=== PATIENT | female | born 1975 | race Caucasian/White ===

== ENCOUNTER → 2017-07-18 | Day surgery (SDC) | payer OTHER ==
[~2017-07-18] MED LIST: PROPOFOL 40 ML IV
[2017-07-18] MEDS: IV RINGERS,LACTATED 1000ML 1,000 ML IV (07:23)
== END | disposition home or self-care (01) ==
LOC: ENDOS 06:33
DX: Z09 Encounter for follow-up examination after completed treatment for conditions other than malignant neoplasm (principal); Z86.010 Personal history of colon polyps; K64.0 First degree hemorrhoids; K29.50 Unspecified chronic gastritis without bleeding; I10 Essential (primary) hypertension; E78.5 Hyperlipidemia, unspecified; Z85.3 Personal history of malignant neoplasm of breast; Z86.718 Personal history of other venous thrombosis and embolism; G47.33 Obstructive sleep apnea (adult) (pediatric); E66.9 Obesity, unspecified; F17.210 Nicotine dependence, cigarettes, uncomplicated; Z85.828 Personal history of other malignant neoplasm of skin; Z72.89 Other problems related to lifestyle; Z85.41 Personal history of malignant neoplasm of cervix uteri; Z90.710 Acquired absence of both cervix and uterus; Z90.49 Acquired absence of other specified parts of digestive tract; Z98.84 Bariatric surgery status; Z79.899 Other long term (current) drug therapy; Z88.8 Allergy status to other drugs, medicaments and biological substances; Z91.040 Latex allergy status; Z90.11 Acquired absence of right breast and nipple; Z91.048 Other nonmedicinal substance allergy status
CPT/HCPCS: 43235; J2704

== ENCOUNTER → 2020-11-21 | Outpatient (CLI) | payer OTHER ==
[2017-07-18 08:35] VITALS: BP 113/60
[~2020-11-21] MED LIST changes: +ALPR0.5T6 PO; +CEPH-264 PO; +DOCU-109 PO; +IBUP-1060 PO; +LACT1CAP25 PO; +MELA10TA PO; +OMEP40CA45 PO; +OXYC1TAB15 PO; +PRED50TA PO; -PROPOFOL 40 ML IV; +TORS20TA2 PO; +TRIA10.8 NS; +TRIA1TAB3 PO; +VENL75CA PO
--- NOTE | 2020-11-21 15:30 | KCIC ---
Exam Date: 11/21/2020 8:15 AM MRI LEFT LOWER EXTREMITY JOINT WITHOUT Indication: Reason: LEFT KNEE PAIN / Spl. Instructions: / History: Generalized over all pain, chroni c. Some physical therapy. TECHNIQUE: Routine multiplanar MR imaging of the knee was performed without contrast. COMPARISON: Radiographs from November 07, 2020 FINDINGS: There is complex tearing involving the posterior horn of the medial meniscus, including a large radia l component. The lateral meniscus is intact and within normal limits for age. The anterior cruciate ligament, posterior cruciate ligament, medial collateral ligament, and lateral collateral ligament complex are intact. Patellofemoral extensor mechanism and popliteus tendon are w ithin normal limits. There is focal full-thickness chondral fissuring along the trochlear sulcus with mild subchondral deg enerative marrow signal. Cartilage in the patellofemoral compartment is otherwise intact. There is mo derate diffuse chondral thinning in the medial compartment with multifocal full-thickness chondral lo ss and mild subchondral degenerative marrow signal. Cartilage in lateral compartment is intact. Small tricompartment osteophytes are noted. Bone marrow otherwise demonstrates normal signal on all s equences without evidence of acute fracture. There is a moderate joint effusion. There is no popliteal cyst. There is a 6 mm calcified intra-nikki cular body posteriorly near the posterior horn root of the medial meniscus. IMPRESSION: Complex tearing of the posterior horn of the medial meniscus. Full-thickness chondral loss in the medial compartment, more so than the patellofemoral compartment. Moderate joint effusion. 6 mm calcified intra-articular body posteriorly. Electronically signed by: Tom Vigil MD (11/21/2020 3:28 PM) [id number]
== END ==
LOC: KCIC MRI 08:09
PROVIDERS: ATTEND Physician Assistant Medical
DX: S83.232A Complex tear of medial meniscus, current injury, left knee, initial encounter (principal); M25.762 Osteophyte, left knee; M25.462 Effusion, left knee; X58.XXXA Exposure to other specified factors, initial encounter; Y93.89 Activity, other specified; Y92.89 Other specified places as the place of occurrence of the external cause; Y99.8 Other external cause status
CPT/HCPCS: 73721

== ENCOUNTER 2021-03-13 11:22 | Day surgery (SDC) | payer OTHER ==
[~2021-03-13] VITALS: Ht 167.6 cm; Wt 100.1 kg
[~2021-03-13 11:22] MED LIST changes: +IV RINGERS,LACTATED 1000ML 1,000 ML IV SCH; -LACT1CAP25 PO; +LACT1CAP39 PO; +MORPHINE SULFATE 2 MG/ML INJ. IVP PRN; -OMEP40CA45 PO; +OMEP40CA7 PO; +PROCHLORPERAZINE 10 MG/2 ML VIAL. IVP PRN; +fentaNYL PF VIAL 100 MCG/2 ML VIAL IVP PRN
[2021-03-13 11:52] VITALS: BP 110/67
[2021-03-13] MEDS ORDERED: SCOPOLAMINE 1.5MG PATCH. TD SCH (12:00)
[2021-03-13] MEDS ORDERED: ONDANSETRON PF 4 MG/2 ML VIAL. ONE (12:14)
[2021-03-13] MEDS ORDERED: PROPOFOL 10 MG/ML (20ML) VIAL. IV ONE (12:14)
[2021-03-13] MEDS ORDERED: LIDOCAINE 1% PF 5 ML VIAL. ONE (12:14)
[2021-03-13] MEDS ORDERED: DEXAMETHASONE SOD PHOS 4 MG/ML VIAL ONE ×2 (12:14→13:53)
[2021-03-13] MEDS ORDERED: fentaNYL PF VIAL 100 MCG/2 ML VIAL ONE ×2 (12:14→14:56)
[2021-03-13] MEDS ORDERED: MIDAZOLAM HCL/PF 2 MG/2 ML VIAL. ONE (12:15)
[2021-03-13] MEDS ORDERED: KETAMINE HCL IN NACL, ISO-OSM 50 MG/5 ML SYRINGE ONE (13:53)
[2021-03-13] MEDS ORDERED: BUPIVACAINE-EPI 0.5%-1:200000 MPF 30 ML VIAL. ONE (14:03)
[2021-03-13] MEDS ORDERED: KETOROLAC 30 MG/ML VIAL. ONE (14:22)
[2021-03-13] MEDS ORDERED: MORPHINE SULFATE 2 MG/ML INJ. ONE (14:49)
[2021-03-13] MEDS ORDERED: HYDR-2765 PO (14:50)
[2021-03-13] MEDS ORDERED: PROCHLORPERAZINE 10 MG/2 ML VIAL. ONE (14:50)
[2021-03-13] MEDS: fentaNYL PF VIAL 100 MCG/2 ML VIAL IVP PRN ×2 (14:57→15:27)
--- NOTE | 2021-03-13 14:58 | DISCH ---
DISCHARGE INSTRUCTIONS Condition on Discharge Condition on Discharge: Stable Activity After Discharge Activity Instructions for Disc: Activity as tolerated Exercise Instruction after Dis: Progress as tolerated Driving Instructions after Dis: Do not drive today Weight Bearing Status after Di: As tolerated Diet after Discharge Diet after Discharge: Regular Wound Incision Care Wound/Incision Care: Ice to area for comfort, Keep wound elevated, Change dressing (Remove dressing in 2 days may then shower no soaking until postoperative wound check), May get incision wet Checks after Discharge Checks after discharge: Check your Temp as needed Contacting the DRAnita after DC Call your doctor for: Concerns you may have Follow-Up Follow up with: Dr. Gentile or Yessy 1 week JOHANNE GENTILE MD Mar 13, 2021 14:57
[2021-03-13] MEDS ORDERED: HYDROmorphone 2 MG/ML VIAL ONE (15:03)
[2021-03-13] MEDS: HYDROmorphone 2 MG/ML VIAL IVP PRN ×2 (15:04→15:14)
[2021-03-13 15:30] VITALS: BP 126/70
[2021-03-13] MEDS ORDERED: oxyCODONE/APAP 7.5/325 1 TAB TABLET PO ONE (15:30)
--- NOTE | 2021-03-13 15:39 | PDOC4 ---
Operative Note Operative Note Date of surgery: 03/13/2021 Preoperative diagnosis: Medial meniscus tear and loose body left knee Postoperative diagnosis: Same with displaceable tear posterior horn medial meniscus free edge tearing of the lateral meniscus and a loose body in the posterior compartment left knee Operative procedure: Left knee arthroscopy partial medial and lateral meniscectomies and excision loose body from separate posterior portal Surgeon: Seferino Assist: Mahad bazan assist Anesthesia: General Estimated blood loss: 2 cc Complications: None Operative indications: Please see her preoperative orthopedic clinic note for detailed operative indications and note that we covered the possibility of partial meniscectomy and retrieval of the loose body and the fact that I cannot undo any degenerative changes in the knee. Furthermore we discussed that she had a history of blood clots from a central line when she was admitted to the hospital years ago for a separate issue not actual deep venous thrombosis. We did discuss the possibility of continued pain infection nerve or blood vessel damage medical or other anesthetic risks including blood clots all her questions were answered she wishes to proceed with surgical evaluation and treatment Operative text: Patient was identified procedure verified patient placed in the supine position on the operating table. After adequate amounts of general anesthesia were administered the left lower extremity was prepped and draped in standard sterile fashion with a thigh tourniquet and after timeout was performed patient procedure identified and verified the left lower extremity was exsanguinated by Esmarch bandage tourniquet inflated to 300 mmHg a lateral portal was established medial portal established using spinal needle localization and the knee joint was systematically examined. She had good cond ition of the patellofemoral joint and did have some significant bony spurring noted on the medial aspect of the medial compartment and a displaceable tear of the posterior horn of medial meniscus trimmed back to stable tissue using arthroscopic punch and shaver. ACL was noted to be intact. She had some free edge fraying of the lateral meniscus which was trimmed back to stable tissue with the arthroscopic punch and shaver. A posterior medial portal was established viewing through the notch from a lateral portal and the approximately 6 mm loose body was retrieved from the enlarged posterior medial portal. The knee was again examined completely arthroscopically to ensure no further cartilage fragments or loose bodies were present. Knee joint was drained of arthroscopic fluid portals closed with buried Vicryl suture Monocryl subcuticular suture Steri-Strips Mastisol and sterile dressings were applied. Toes were noted be warm pink following deflation of the tourniquet. Patient was returned to recovery room in stable condition having tolerated procedure well. Mahad red was present for the procedure assisted in patient positioning prepping draping retraction positioning closure and dressings JOHANNE REEVES MD Mar 13, 2021 15:39
[2021-03-13] MEDS ORDERED: diphenhydrAMINE 50 MG/ML VIAL ONE (15:47)
[2021-03-13] MEDS ORDERED: diphenhydrAMINE 50 MG/ML VIAL IVP ONE (16:00)
== END 2021-03-13 16:04 | disposition home or self-care (01) ==
LOC: SURG 11:22
PROVIDERS: ATTEND Orthopaedic Surgery
DX: S83.242A Other tear of medial meniscus, current injury, left knee, initial encounter (principal); S83.282A Other tear of lateral meniscus, current injury, left knee, initial encounter; I11.0 Hypertensive heart disease with heart failure; I50.9 Heart failure, unspecified; K21.9 Gastro-esophageal reflux disease without esophagitis; F41.9 Anxiety disorder, unspecified; F32.9 Major depressive disorder, single episode, unspecified; Z85.828 Personal history of other malignant neoplasm of skin; F17.210 Nicotine dependence, cigarettes, uncomplicated; Z86.718 Personal history of other venous thrombosis and embolism; Z79.899 Other long term (current) drug therapy; Z90.49 Acquired absence of other specified parts of digestive tract; Z90.710 Acquired absence of both cervix and uterus; Z90.13 Acquired absence of bilateral breasts and nipples; Z90.721 Acquired absence of ovaries, unilateral; Z98.890 Other specified postprocedural states; X58.XXXA Exposure to other specified factors, initial encounter; Y93.89 Activity, other specified; Y92.89 Other specified places as the place of occurrence of the external cause
CPT/HCPCS: 29880; A4364; A4930; J0690; J0780; J1100; J1170; J1200; J1885; J2250; J2270; J2405; J2704; J3010; J3490; A4223; A4452